=== PATIENT | male | born 1950 | race African-American/Black ===

== ENCOUNTER 2017-03-13 12:59 | Observation (INO) ==
[2017-03-13] MEDS ORDERED: SODIUM CHLORIDE 0.9% 1,000 ML IV STA (13:31)
--- NOTE | 2017-03-13 13:38 | Emergency Department Note ---
Shameka Friedman Hilary, am scribing for, and in the presence of, Jameel Watts MD 13: 34. Stefanie Friedman James D, MD, personally performed the services described in this documentation, ascribed by Bnony Myles in my presence, and it is both accurate and complete 338 . 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 Denies CP or SOB. +nausea and diaphoresis. Mode of Arrival: Stretcher Limitations: No Limitations Source: Patient, RN Notes Reviewed - History of Present Illness HPI Narrative: Pt is a 66 y/o black male brought into the ED via EMS for c/o almsot passing out. Pt was at [facility] for a steroid shot for Gout in his hand. [facility] said his pressure was up so they gave him "2 capsule pills" and then he went to lunch when he started to feel dizzy and "rocking". Pt confirms SOB, almost passing out but denies chest pain. No other complaints or problems stated in the ED. Onset (ago): minute(s) Consistency: now resolved Severity: mild Severity scale (1-10): 1 Allergies/Adverse Reactions: Allergies Allergy/AdvReac Type Severity Reaction Status Date / Time No Known Allergies Allergy Unverified 03/13/17 13:12 Home Medications: Home Medications Medication Instructions Recorded Confirmed Type Atorvastatin [Lipitor] 40 mg PO BEDTIME 11/24/16 11/24/16 History Indomethacin [Indomethacin Cap] 25 mg PO BID PRN 11/24/16 11/24/16 History Losartan/Hydrochlorothiazide 1 each PO DAILY 11/24/16 11/24/16 History [Losartan-Hctz 100-25 mg Tab] amLODIPine [Norvasc] 10 mg PO DAILY 11/24/16 11/24/16 History cloNIDine HCl [Clonidine HCl] 0.2 mg PO BID 11/24/16 11/24/16 History Indomethacin Cap [Indocin Cap] 25 mg PO TID #30 capsule 11/30/16 Rx predniSONE TAB [PredniSONE] 20 mg PO DAILY #15 tablet 11/30/16 Rx Review of System - Review of System 12 point system: reviewed and no additional remarkable complaints except as stated - Review of System Constitutional: Absent: fever Respiratory: Present: respiratory distress (SOB) Cardiovascular: Absent: chest pain, syncope (near syncope) Medical,Surgical,& Family Hx - Medical History Cardio: History of: Hypertension Rheumatology: History of;: Gout - Surgical History Orthopedic Surgeries: Surgical HX of;: Orthopedic Surgery - Family History Family History: Reports;: Family Heart Disease, Family Hypertension Denies;: Family Anesthesia Reaction, Family Cancer, Family Diabetes, Family Psychiatric Problems, Family Stroke - Social History Smoking Status: Never smoker Frequency of Alcohol Use: None Type of Drug Use: None Exam Physical Examination: GENERAL: This is a well-nourished, well-developed in no apparent distress. VITAL SIGNS: Temperature: 97.6 Pulse: 60 Respiratory: 17 Blood Pressure: 139 /94 O2Sat: 99 HEENT: Head is normocephalic and atraumatic. Pupils are equally round and reactive to light. Extraocular movement are intact. Oropharynx is benign with moist mucous membranes. NECK: Neck is soft and supple without tenderness. There are no masses. There is no lymphadenopathy. LUNGS: Lungs are clear to auscultation bilaterally. Chest rises symmetrically. There is no chest wall tenderness. CV: Heart is regular rate and rhythm without murmurs, rubs, or gallops. ABDOMEN: Abdomen is soft, non-tender to palpation. There are no abnormal masses palpated. There is no organomegaly. Bowel sounds are present and active. SKIN: Skin is warm and dry. No rash. EXTREMITIES: Patient has full range of motion without tenderness. There is no pedal edema. NEUROLOGIC: Awake, alert, and oriented x4. Cranial nerves II through XII are grossly intact. There are no motorsensory deficits. PSYCHIATRIC: Normal affect. Normal mood. Vital Signs: Vital Signs Temperature 97.6 F 03/13/17 13:08 Pulse Rate 50 L 03/13/17 13:55 Respiratory Rate 17 03/13/17 13:13 Blood Pressure 134/89 03/13/17 13:55 O2 Sat by Pulse Oximetry 99 03/13/17 13:08 Course - Consultations Consultation #1: Discussed with hospitalist. Patient will be admitted to their service. Time: 15:35 Results - Labs CBC & BMP: 03/13/17 13:33 03/13/17 13:33 Lab Results: I have reviewed the patients labs - EKG EKG results: interpreted by ERMD - Impressions EKG: sinus bradycardia with a rate of 59, ST segment elevation which is nonspecific, normal axis. - Diagnostic Findings Procedure: Chest x-ray: image reviewed by me (No cardiomegaly, no pleural effusions. No infiltrates.), CT: image reviewed by me (CT head: No acute intracranial lesion or hemorrhage.) Disposition Clinical Impression: Near syncope, Abnormal EKG, Essential hypertension Case discussed with: patient Disposition: Still a Patient Condition: Stable
[2017-03-13 13:43] LABS: Basophils % 0.2 % (0.0-0.8); Eosinophils # 0.1 10*3/uL (0.0-0.87); Eosinophils % 1.8 % (0.00-10.9); Hematocrit 34.5 VOL% (42.0-52.0); Hemoglobin 11.7 GM/DL (14.0-18.0); Immature Granulocytes % 0.2 %; Immature Granulocytes Absolute 0.01 #; Lymphocytes # 1.5 10*3/uL (1.4-4.0); Lymphocytes % 24.1 % (21.2-54.2); Mean Corpuscular HGB Conc 33.9 GM/DL (32-36); Mean Corpuscular Hemoglobin 32 PG (27-34); Mean Corpuscular Volume 94.3 FL (87-102); Mean Platelet Volume 11.2 FL (9.6-12.0); Monocytes # 0.7 10*3/uL (0.11-0.8); Monocytes % 11.5 % (1.7-12.7); Neutrophils # 3.8 10*3/uL (1.4-7.4); Neutrophils % 62.2 % (38.7-73.9); Platelet Count 236 T/CUMM (130-400); Red Blood Count 3.66 MC/CUMM (3.8-5.5); White Blood Count 6.2 T/CUMM (4-12)
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
--- NOTE | 2017-03-13 13:47 | Event Note ---
This note previously placed by me was placed on the wrong patient. This note is in error please disregard the previous note.
--- NOTE | 2017-03-13 13:49 | CT Report ---
CT head/brain wo con Indication: Syncope Comparison: CT brain dated February 03, 2017 Technique: Multiple axial tomographic images of the brain were obtained without the use of intravenous contrast. Findings: Midline structures are nondisplaced. There is no evidence of acute intracranial hemorrhage or hydrocephalus. Mild global volume loss present. Mild periventricular and subcortical hypoattenuation noted which is nonspecific but consistent with chronic microvascular ischemic change. Demyelinating process and vasculitis less likely considerations. 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 Minimal mucosal thickening of the paranasal sinuses. IMPRESSION: No acute intracranial abnormality demonstrated. Chronic findings as above. The CT exam was performed using one or more of the following dose reduction techniques: Automated exposure control, adjustment of the mA and/or kV according to patient size, or use of iterative reconstruction technique. PROCEDURE INTERPRETED AT [facility] DEPARTMENT OF RADIOLOGY Final Report Signed by: Dr Joaquin Deleon
[2017-03-13 13:53] LABS: INR 1.1; PT Patient Result 11.3 SECS
--- NOTE | 2017-03-13 13:57 | XRay Report ---
XR chest 1V portable Indication: SOB Comparison: Chest x-ray dated November 30, 2016 Technique: Single frontal view of the chest. Findings: The cardiomediastinal silhouette is stable in configuration. Chronic change of the lungs without focal consolidation, pleural effusion, or pneumothorax. Visualized osseous and surrounding soft tissue structures appear grossly unchanged. IMPRESSION: Stable chest x-ray without acute cardiopulmonary process demonstrated. PROCEDURE INTERPRETED AT [facility] DEPARTMENT OF RADIOLOGY Final Report Signed by: Dr Joaquin Deleon
[2017-03-13 14:01] LABS: ABG Base Excess -0.3 MMOL/L (-2.5-2.5); ABG HCO3 24.1 MMOL/L (20-26); ABG PCO2 38.3 MM HG (35-48); ABG PH 7.408 (7.35-7.45); ABG TCO2 21.4 MMOL/L (23-27)
[2017-03-13 14:03] LABS: Alanine Aminotransferase 26 U/L (16-61); Albumin 3.3 G/DL (3.4-5.0); Alkaline Phosphatase 66 U/L (45-117); Aspartate Amino Transferase 32 U/L (0-37); Blood Urea Nitrogen 12 MG/DL (7-18); Calcium 8.6 MG/DL (8.5-10.1); Glucose 94 MG/DL (74-106); Osmolality,Calculated 274.7 MOS/KG (273-304); Potassium 3.6 MMOL/L (3.5-5.1); Sodium 138 MMOL/L (136-145); Total Protein 7.1 G/DL (6.4-8.3); Troponin I Only < 0.015 NG/ML (0.00-0.045)
[2017-03-13 15:28] LABS: Barbiturates Screen,Urine Negative (Negative); Benzodiazepines Screen,Urine Negative (Negative); Cannabinoid Screen,Urine Negative (Negative); Opiate Screen,Urine Negative (Negative); Phencyclidine Screen,Urine Negative (Negative)
[2017-03-13 15:31] LABS: Apearance,Urine CLEAR (Clear); Bilirubin,Urine Negative (Negative); Blood, Urine Negative (Negative); Glucose,Urine (UA) Negative (Negative); Ketones,Urine Negative (Negative); Mucus,Urine Occasional /LPF (Occasional); Nitrite,Urine Negative (Negative); Protein,Urine Negative; RBC,Urine <1 /HPF (0-4); Urine Color Yellow (Yellow); Urine Specific Gravity 1.009 (1.001-1.035); Urine Urobilinogen < 2.0 EU/DL (0.2-1.0); WBC,Urine 2 /HPF (0-6)
--- NOTE | 2017-03-13 17:25 | Hospitalist History & Physical ---
Assessment and Plan (1) Near syncope Status: Acute Assessment and plan: Symptoms completely resolved on admission. These symptoms were likely due to patient's hypertension and administration of unfamiliar antihypertensive medication today. We will keep the patient overnight for observation. Current Visit: Yes (2) Essential hypertension Status: Acute Assessment and plan: Patient is followed by the [facility]. He notes that he is not taking any of his blood pressure medications in 2 days. He states that he ran out. We will admit patient for observation overnight treat his hypertension and plan to discharge in the morning with prescription for antihypertensives. Current Visit: Yes History of Present Illness Chief complaint: near syncope History of present illness: Mr. Mohan is a 66 year old -[place] male with a past medical history significant for hypertension, gout, chronic shoulder pain who presents to the emergency room today for further evaluation of a dizzy spell and near syncopal episode. Patient reports that he went to the [facility] for an acute gouty flare as a walk-in patient today when he was found to be hypertensive. Patient states that he was given "2 tablets" to lower his blood pressure and he felt "good". He admits that he has not taken his antihypertensive medication in 2 days due to him having "ran out". Patient then left the clinic and went on to a soup kitchen and had just begun to prepare to eat when he began to feel dizzy, rocking back and forth, and noticed that the "floor was spinning". Patient reports that he sat down but never lost consciousness. EMS was called and patient was brought to the [place] ED for further evaluation. On arrival, the patient's symptoms had almost completely resolved. He remains bradycardic and his blood pressure has started to increase again. Patient's only complaint at this time is "sharp pain" in his left chest wall that is relieved with stretching and massage. EKG and CXR are unremarkable. Blood work is as follows: WBC 6.2 hemoglobin 11.7, hematocrit 34.5, pH 7.408, PCO2 38.3, PO2 76.0, HCO3 24.1, sodium 138, potassium 3.6, BUN 12, creatinine 0.90. Case has been discussed with Dr. Beach, admitting physician, the patient will be admitted for observation overnight. Patient is a full code. Home meds have been reviewed, however, the patient listed his pharmacy as Mr. Stallworth on and the pharmacy notes that the patient has not picked up his medications since November 2016. For this reason patient's home meds have not yet been confirmed or reconciled. Home Medications Medication Instructions Recorded Confirmed Type Indomethacin [Indomethacin Cap] 25 mg PO BID PRN 11/24/16 11/24/16 History Losartan/Hydrochlorothiazide 1 each PO DAILY 11/24/16 11/24/16 History [Losartan-Hctz 100-25 mg Tab] amLODIPine [Norvasc] 10 mg PO DAILY 11/24/16 11/24/16 History cloNIDine HCl [Clonidine HCl] 0.2 mg PO BID 11/24/16 11/24/16 History Indomethacin Cap [Indocin Cap] 25 mg PO TID #30 capsule 11/30/16 Rx Allopurinol 300 mg PO DAILY 03/13/17 History Allergies Allergy/AdvReac Type Severity Reaction Status Date / Time No Known Allergies Allergy Unverified 03/13/17 13:12 Medical,Surgical,& Family Hx - Medical History Cardio: History of: Hypertension Rheumatology: History of;: Gout - Surgical History Orthopedic Surgeries: Surgical HX of;: Orthopedic Surgery - Family History Family History: Reports;: Family Heart Disease, Family Hypertension Denies;: Family Anesthesia Reaction, Family Cancer, Family Diabetes, Family Psychiatric Problems, Family Stroke - Social History Smoking Status: Former smoker Frequency of Alcohol Use: None Type of Drug Use: None Marital Status: Single Lives With:: Alone Functional capacity: independent ambulation - Constitutional Constitutional: Absent: anorexia, chills, fever(s), frequent falls, lethargy, weakness - EENT Eyes: Absent: blurry vision, loss of vision Ears: Absent: decreased hearing, ear pain Nose, mouth and throat: Absent: headache(s), nasal congestion, sore throat, vertigo - Cardiovascular Cardiovascular: Absent: chest pain at rest, dyspnea, dyspnea on exertion, edema , radiating jaw, neck or arm pain - Respiratory Respiratory: Present: pain on inspiration. Absent: cough, dyspnea, dyspnea on exertion, wheezing - Gastrointestinal Gastrointestinal: Absent: abdominal pain, constipation, diarrhea, nausea, vomiting - Genitourinary Genitourinary: Absent: dysuria, flank pain, hematuria - Musculoskeletal Musculoskeletal: Present: arthralgias - Neurological Neurological: Present: dizziness. Absent: abnormal gait, confusion, frequent falls, numbness, syncope - Psychiatric Psychiatric: Absent: anxiety, depression - Endocrine Endocrine: Absent: cold intolerance, heat intolerance - Hematologic/Lymphatic Hematologic/Lymphatic: Absent: easy bleeding, easy bruising Exam - Constitutional Vitals: Period Temp Pulse Resp BP Sys/Burks Pulse Ox Last 24 Hr 97.6 F-97.6 F 50-64 17-17 134-163/89-103 99 Exam: General appearance: overweight, no acute distress, somnolent but responsive - Head Head exam: Present: normocephalic, atraumatic - Eye Eye exam: Present: EOMI. Absent: conjunctival injection, nystagmus Pupils: Present: JER, normal accommodation - ENT ENT exam: Present: normal exam, normal external ear exam - Neck Neck exam: Present: normal inspection. Absent: lymphadenopathy, tenderness, thyromegaly - Respiratory Respiratory exam: Present: clear to auscultation bilaterally. Absent: rales, rhonchi, wheezes - Cardiovascular Cardiovascular exam: Present: regular rate and rhythm. Absent: carotid bruit, gallop, rubs - GI/Abdominal GI/Abdominal exam: Present: normal bowel sounds. Absent: ascites, distended, mass - Extremities Exam Extremities exam: Present: normal inspection, normal capillary refill. Absent: edema - Back Exam Back exam: Absent: CVA tenderness (L), CVA tenderness (R) - Neurological Exam Neurological exam: Present: alert, oriented X3 - Psychiatric Psychiatric exam: Present: normal affect, normal mood - Skin Skin exam: Present: normal color, warm, dry Results - Labs CBC & BMP: 03/13/17 13:33 03/13/17 13:33 Lab Results: I have reviewed the past 24 hour labs - EKG EKG results: interpreted by DEIDRA, sinus rhythm
[2017-03-13] MEDS ORDERED: ONDANSETRON 4 MG/2 ML VIAL IV PRN (17:56)
[2017-03-13] MEDS ORDERED: ACETAMINOPHEN 325 MG TABLET PO PRN (17:56)
[2017-03-13] MEDS ORDERED: ZALEPLON 5 MG CAPSULE PO PRN (17:56)
[2017-03-13] MEDS ORDERED: DOCUSATE SODIUM 100 MG CAPSULE PO PRN (17:56)
[2017-03-13] MEDS ORDERED: ENOXAPARIN 40 MG/0.4 ML SYRINGE SUBCUT SCH (18:00)
[2017-03-13] MEDS: INDOMETHACIN 25 MG CAPSULE PO SCH (21:36)
[2017-03-14 05:28] LABS: Basophils % 0.2 % (0.0-0.8); Eosinophils # 0.2 10*3/uL (0.0-0.87); Eosinophils % 3.3 % (0.00-10.9); Hematocrit 35.5 VOL% (42.0-52.0); Hemoglobin 12.1 GM/DL (14.0-18.0); Immature Granulocytes % 0.2 %; Immature Granulocytes Absolute 0.01 #; Lymphocytes # 2.2 10*3/uL (1.4-4.0); Lymphocytes % 42.4 % (21.2-54.2); Mean Corpuscular HGB Conc 34.1 GM/DL (32-36); Mean Corpuscular Hemoglobin 32 PG (27-34); Mean Corpuscular Volume 93.4 FL (87-102); Mean Platelet Volume 11.3 FL (9.6-12.0); Monocytes # 0.6 10*3/uL (0.11-0.8); Monocytes % 11.1 % (1.7-12.7); Neutrophils # 2.2 10*3/uL (1.4-7.4); Neutrophils % 42.8 % (38.7-73.9); Platelet Count 246 T/CUMM (130-400); Red Cell Distribution Width 13.2 % (9.3-17.3); White Blood Count 5.1 T/CUMM (4-12)
[2017-03-14 06:09] LABS: Albumin 3.1 G/DL (3.4-5.0); Bilirubin,Total 1.7 MG/DL (0.2-1.0); Calcium 8.9 MG/DL (8.5-10.1); Magnesium 2.2 MG/DL (1.8-2.4); Osmolality,Calculated 282.1 MOS/KG (273-304); Potassium 4.1 MMOL/L (3.5-5.1); Risk Ratio 4.09; Thyroid Stimulating Hormone 2.15 uIU/ml (0.358-3.74); Total Protein 6.6 G/DL (6.4-8.3); VLDL CHOLESTEROL 21.2 MG/DL
[2017-03-14 07:42] VITALS: BP 157/93
--- NOTE | 2017-03-14 07:42 | Discharge Summary ---
<Mason Reid - Last Filed: 03/14/17 10:16> Hospital Course - Hospital Course Hospital Course: Mr. Mohan is a 66-year-old -[place] male who was admitted through the [facility] on yesterday for further evaluation of dizziness and near syncopal episode. After examination of the patient, it was found that the patient never actually lost consciousness but simply had not been taking his medications and perhaps had an adverse reaction to fast acting antihypertensives given in his primary care office earlier that day. Patient was admitted to telemetry for observation and treatment of his hypertension. Patient experienced no acute events overnight and is stable for discharge at this time. Upon discharge, the patient should continue aspirin plus his home medications as previously prescribed. Patient is encouraged to follow-up with his PCP and to remain compliant with his medications. I have personally seen and examined this patient today. I agree with the above note as prepared by the advanced practice provider. I agree with the assessment and plan. I agree with the documentation listed above by EHSAN Diaz Diagnosis - Discharge Diagnosis (1) Near syncope Status: Acute (2) Essential hypertension Status: Acute Discharge Plan - Discharge Data Disposition: Disch To Home/Self Care - Discharge Medications New Aspirin EC Tab 81 mg PO DAILY #100 tablet Continue cloNIDine HCl [Clonidine HCl] 0.2 mg PO BID amLODIPine [Norvasc] 10 mg PO DAILY Indomethacin [Indomethacin Cap] 25 mg PO BID PRN PRN Reason: Pain Losartan/Hydrochlorothiazide [Losartan-Hctz 100-25 mg Tab] 1 each PO DAILY Indomethacin Cap [Indocin Cap] 25 mg PO TID #30 capsule Allopurinol 300 mg PO DAILY - Follow Up or Referral - Forms/Instructions Instructions: Heart Healthy Diet (DC), Chronic Hypertension (DC) Exam - Constitutional Vitals: Period Temp Pulse Resp BP Sys/Burks Pulse Ox Last 24 Hr 97.2 F-98.5 F 47-64 14-20 134-186/77-103 93-100 General appearance: over weight - Head Head exam: Present: normal inspection, normocephalic, atraumatic - Eye Eye exam: Present: EOMI Pupils: Present: JER - ENT ENT exam: Present: normal exam, normal external ear exam - Neck Neck exam: Present: normal inspection. Absent: lymphadenopathy, tenderness - Respiratory Respiratory exam: Present: clear to auscultation bilaterally. Absent: rhonchi, wheezes - Cardiovascular Cardiovascular exam: Present: regular rate and rhythm. Absent: carotid bruit, gallop, JVD - GI/Abdominal GI/Abdominal exam: Present: normal bowel sounds, soft. Absent: ascites, distended, mass - Extremities Exam Extremities exam: Present: normal inspection, full ROM. Absent: edema - Back Exam Back exam: Present: normal inspection. Absent: CVA tenderness (L), CVA tenderness (R) - Neurological Exam Neurological exam: Present: alert, oriented X3, CN II-XII intact, reflexes normal - Psychiatric Psychiatric exam: Present: normal affect, normal mood - Skin Skin exam: Present: normal color, warm, dry Discharge Results Labs on day of discharge: Labs from last 24 hours 03/14/17 03/14/17 03/14/17 05:08 05:08 05:08 WBC 5.1 RBC 3.80 Hgb 12.1 L Hct 35.5 L MCV 93.4 MCH 32 MCHC 34.1 RDW 13.2 Plt Count 246 MPV 11.3 Neut % (Auto) 42.8 Lymph % (Auto) 42.4 [place] % (Auto) 11.1 Eos % (Auto) 3.3 Baso % (Auto) 0.2 Neut # (Auto) 2.2 Lymph # (Auto) 2.2 [place] # (Auto) 0.6 Eos # (Auto) 0.2 Baso # (Auto) 0.0 Immature Gran % 0.2 Nucleated RBC % 0.0 Immature Gran # 0.01 Nucleated RBCs # 0.00 INR PT Patient/Control Mix ABG pH ABG pCO2 ABG pO2 ABG HCO3 ABG Total CO2 ABG O2 Saturation ABG Base Excess Sodium 142 Potassium 4.1 Chloride 109 H Carbon Dioxide 25 Anion Gap 12.1 BUN 10 Creatinine 0.90 GFR Calculation 143 BUN/Creatinine Ratio 11.00 Glucose 113 H Hemoglobin A1c 6.0 Calculated Osmolality 282.1 Calcium 8.9 Magnesium 2.2 Total Bilirubin 1.70 H AST 27 ALT 25 Alkaline Phosphatase 70 Troponin I B-Natriuretic Peptide Total Protein 6.6 Albumin 3.1 L Globulin 3.5 Albumin/Globulin Ratio 0.8 L Triglycerides 106 Cholesterol 131 LDL Cholesterol 91.0 VLDL Cholesterol 21.2 HDL Cholesterol 32 L Heart Disease Risk Ratio 4.09 TSH 3rd Generation 2.150 Urine Color Urine Appearance Urine pH Ur Specific [place] Urine Protein Urine Glucose (UA) Urine Ketones Urine Blood Urine Nitrate Urine Bilirubin Urine Urobilinogen Urine Leukocytes Urine RBC Urine WBC Urine Mucus Ur Culture Indicated? Urine Opiates Screen Ur Barbiturates Screen Ur Phencyclidine Scrn U Amphetamine/Methamph U Benzodiazepines Scrn U Cocaine Metab Screen U Cannabinoids Screen Serum Alcohol 03/13/17 03/13/17 03/13/17 14:52 14:52 13:33 WBC RBC Hgb Hct MCV MCH MCHC RDW Plt Count MPV Neut % (Auto) Lymph % (Auto) [place] % (Auto) Eos % (Auto) Baso % (Auto) Neut # (Auto) Lymph # (Auto) [place] # (Auto) Eos # (Auto) Baso # (Auto) Immature Gran % Nucleated RBC % Immature Gran # Nucleated RBCs # INR PT Patient/Control Mix ABG pH ABG pCO2 ABG pO2 ABG HCO3 ABG Total CO2 ABG O2 Saturation ABG Base Excess Sodium Potassium Chloride Carbon Dioxide Anion Gap BUN Creatinine GFR Calculation BUN/Creatinine Ratio Glucose Hemoglobin A1c Calculated Osmolality Calcium Magnesium Total Bilirubin AST ALT Alkaline Phosphatase Troponin I B-Natriuretic Peptide 50 Total Protein Albumin Globulin Albumin/Globulin Ratio Triglycerides Cholesterol LDL Cholesterol VLDL Cholesterol HDL Cholesterol Heart Disease Risk Ratio TSH 3rd Generation Urine Color Yellow Urine Appearance Clear Urine pH 5.0 Ur Specific [place] 1.009 Urine Protein Negative Urine Glucose (UA) Negative Urine Ketones Negative Urine Blood Negative Urine Nitrate Negative Urine Bilirubin Negative Urine Urobilinogen < 2.0 H Urine Leukocytes Negative Urine RBC <1 Urine WBC 2 Urine Mucus Occasional Ur Culture Indicated? Not indicated Urine Opiates Screen Negative Ur Barbiturates Screen Negative Ur Phencyclidine Scrn Negative U Amphetamine/Methamph Negative U Benzodiazepines Scrn Negative U Cocaine Metab Screen Negative U Cannabinoids Screen Negative Serum Alcohol 03/13/17 03/13/17 03/13/17 13:33 13:33 13:33 WBC 6.2 RBC 3.66 L Hgb 11.7 L Hct 34.5 L MCV 94.3 MCH 32 MCHC 33.9 RDW 13.0 Plt Count 236 MPV 11.2 Neut % (Auto) 62.2 Lymph % (Auto) 24.1 [place] % (Auto) 11.5 Eos % (Auto) 1.8 Baso % (Auto) 0.2 Neut # (Auto) 3.8 Lymph # (Auto) 1.5 [place] # (Auto) 0.7 Eos # (Auto) 0.1 Baso # (Auto) 0.0 Immature Gran % 0.2 Nucleated RBC % 0.0 Immature Gran # 0.01 Nucleated RBCs # 0.00 INR 1.1 PT Patient/Control Mix 11.3 ABG pH ABG pCO2 ABG pO2 ABG HCO3 ABG Total CO2 ABG O2 Saturation ABG Base Excess Sodium 138 Potassium 3.6 Chloride 106 Carbon Dioxide 26 Anion Gap 9.6 BUN 12 Creatinine 0.90 GFR Calculation 144 BUN/Creatinine Ratio 13.00 Glucose 94 Hemoglobin A1c Calculated Osmolality 274.7 Calcium 8.6 Magnesium 2.0 Total Bilirubin 1.10 H AST 32 ALT 26 Alkaline Phosphatase 66 Troponin I < 0.015 B-Natriuretic Peptide Total Protein 7.1 Albumin 3.3 L Globulin 3.8 H Albumin/Globulin Ratio 0.8 L Triglycerides Cholesterol LDL Cholesterol VLDL Cholesterol HDL Cholesterol Heart Disease Risk Ratio TSH 3rd Generation Urine Color Urine Appearance Urine pH Ur Specific [place] Urine Protein Urine Glucose (UA) Urine Ketones Urine Blood Urine Nitrate Urine Bilirubin Urine Urobilinogen Urine Leukocytes Urine RBC Urine WBC Urine Mucus Ur Culture Indicated? Urine Opiates Screen Ur Barbiturates Screen Ur Phencyclidine Scrn U Amphetamine/Methamph U Benzodiazepines Scrn U Cocaine Metab Screen U Cannabinoids Screen Serum Alcohol < 15 L 03/13/17 13:31 WBC RBC Hgb Hct MCV MCH MCHC RDW Plt Count MPV Neut % (Auto) Lymph % (Auto) [place] % (Auto) Eos % (Auto) Baso % (Auto) Neut # (Auto) Lymph # (Auto) [place] # (Auto) Eos # (Auto) Baso # (Auto) Immature Gran % Nucleated RBC % Immature Gran # Nucleated RBCs # INR PT Patient/Control Mix ABG pH 7.408 ABG pCO2 38.3 ABG pO2 76.0 L ABG HCO3 24.1 ABG Total CO2 21.4 L ABG O2 Saturation 95.0 ABG Base Excess -0.3 Sodium Potassium Chloride Carbon Dioxide Anion Gap BUN Creatinine GFR Calculation BUN/Creatinine Ratio Glucose Hemoglobin A1c Calculated Osmolality Calcium Magnesium Total Bilirubin AST ALT Alkaline Phosphatase Troponin I B-Natriuretic Peptide Total Protein Albumin Globulin Albumin/Globulin Ratio Triglycerides Cholesterol LDL Cholesterol VLDL Cholesterol HDL Cholesterol Heart Disease Risk Ratio TSH 3rd Generation Urine Color Urine Appearance Urine pH Ur Specific [place] Urine Protein Urine Glucose (UA) Urine Ketones Urine Blood Urine Nitrate Urine Bilirubin Urine Urobilinogen Urine Leukocytes Urine RBC Urine WBC Urine Mucus Ur Culture Indicated? Urine Opiates Screen Ur Barbiturates Screen Ur Phencyclidine Scrn U Amphetamine/Methamph U Benzodiazepines Scrn U Cocaine Metab Screen U Cannabinoids Screen Serum Alcohol DS: Provider Date of admission: 03/13/17 15:51 Primary care physician: . No PCP Attending physician on admission: Gaurang Beach MD Discharging clinician: Mason MOSER <Gaurang Beach - Last Filed: 03/14/17 15:49> Hospital Course - Time spent with patient Time with patient DS: Less than 30 minutes Diagnosis - Discharge Diagnosis (1) Near syncope Status: Acute (2) Essential hypertension Status: Acute Discharge Plan - Discharge Data Condition at Discharge: Stable Discharge Diet: advance to your usual diet Activity: resume usual activities as tolerated Hygiene: no restrictions Weight Bearing at Discharge: full weight bearing Driving: no restrictions Contact your physician if you experience:: fever over 101, Shortness of breath - Forms/Instructions Additional Discharge Instructions: Follow-up with [facility] as scheduled. Take all medications as prescribed. DS: Provider Expected date of discharge: 03/14/17
--- NOTE | 2017-03-14 07:44 | EKG Report ---
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
[2017-03-14] MEDS ORDERED: amLODIPine 10 MG TABLET PO SCH (09:00)
[2017-03-14] MEDS ORDERED: ALLOPURINOL 300 MG TABLET PO SCH (09:00)
[2017-03-14] MEDS ORDERED: PANTOPRAZOLE 40 MG TABLET PO SCH (09:00)
[2017-03-14] MEDS ORDERED: LOSARTAN/HCTZ 50-12.5 MG TABLET PO SCH (09:00)
[2017-03-14] MEDS: INDOMETHACIN 25 MG CAPSULE PO SCH (09:58)
== END 2017-03-14 12:46 | disposition home or self-care (01) ==
LOC: EDUNIT# → N.ED 12:59 → N.EDINP 12:59 → N.TELES 16:14
PROVIDERS: ADMIT Family Medicine; ATTEND Family Medicine